=== PATIENT | female | born 1990 | race Caucasian/White ===

== ENCOUNTER 2016-08-29 19:59 | Observation (INO) | payer OTHER ==
[2016-10-23] MEDS ORDERED: PRENA1 CHEW TA1.4 M1 PO (07:31)
[2016-10-23] MEDS ORDERED: FEROSUL325 M1 PO (08:38)
[2016-10-25] MEDS ORDERED: IBUPROFEN800 M1 PO (13:17)
[2016-10-25] MEDS ORDERED: NORCO 5-325 TA1 EACH PO (13:18)
== END 2016-08-29 21:22 ==
LOC: LDR 19:59
PROVIDERS: ADMIT Obstetrics & Gynecology
DX: Z03.71 Encounter for suspected problem with amniotic cavity and membrane ruled out (principal); Z3A.32 32 weeks gestation of pregnancy; Z88.1 Allergy status to other antibiotic agents; Z88.8 Allergy status to other drugs, medicaments and biological substances